=== PATIENT | female | born 1985 ===

== ENCOUNTER 2021-06-24 11:30 | Inpatient (IN) | payer OTHER ==
[~2021-06-24] VITALS: Ht 160 cm; Wt 84.4 kg
[2021-06-29] MEDS ORDERED: MESALAMINE1000 MG (09:36)
== END 2021-07-01 15:12 | disposition home or self-care (01) | DRG 807 ==
LOC: LDR 06-28 12:21 → SURH 06-28 12:21 → LDR 06-29 13:30 → SURG-SUITE 06-29 13:30
PROVIDERS: ADMIT Obstetrics & Gynecology Maternal & Fetal Medicine; ATTEND Obstetrics & Gynecology Maternal & Fetal Medicine
PROC: 4A1HXFZ Monitoring of Products of Conception, Cardiac Rhythm, External Approach (ICD-10-PCS; 2021-06-28)
PROC: 10E0XZZ Delivery of Products of Conception, External Approach (ICD-10-PCS; principal; 2021-06-29)
PROC: 0KQM0ZZ Repair Perineum Muscle, Open Approach (ICD-10-PCS; 2021-06-29)
DX: O70.1 Second degree perineal laceration during delivery (principal); Z37.0 Single live birth; O71.89 Other specified obstetric trauma; Z3A.38 38 weeks gestation of pregnancy; Z20.822 Contact with and (suspected) exposure to COVID-19